=== PATIENT | male | born 1960 | race Caucasian/White ===

== ENCOUNTER 2018-06-10 18:23 | Inpatient (IN) ==
[2018-06-10 19:01] LABS: Red Cell Distribution Width 16.8 % (11.5-14.5)
[2018-06-10 19:03] LABS: Basophils % 1.1 %; Eosinophils # 0.1 K/mcL (0.0-0.6); Eosinophils % 2.2 %; Hematocrit 35.7 % (37.5-50.1); Hemoglobin 12.8 g/dL (12.9-16.9); Immature Granulocytes % 0.8 % (0-4); Immature Platelets 2.2 % (1.1-6.1); Lymphocytes % 26.3 %; Mean Corpuscular HGB Conc 35.9 g/dL (31.6-35.5); Mean Corpuscular Volume 105.9 fL (83.0-100.0); Mean Platelet Volume 10.6 fL (9.4-12.4); Monocytes # 0.5 K/mcL (0.0-1.3); Monocytes % 13.9 %; Red Blood Count 3.37 M/mcL (4.19-5.50); Segmented Neutrophils % 55.7 %
[2018-06-10 19:06] LABS: INR 1.7; Prothrombin Time 19.6 Seconds (9.4-12.1)
--- NOTE | 2018-06-10 19:09 | Emergency Department Note ---
Disposition Clinical Impression: Pancytopenia, Elevated INR Ascites Qualifiers: Ascites type: due to alcoholic cirrhosis Qualified Code(s): K70.31 - Alcoholic cirrhosis of liver with ascites Disposition: Admitted As Inpatient Condition: Good Referrals: Mani Martinez DO [Primary Care Provider] - Forms: ED Satisfaction Letter, Work/School Release Abdominal Pain HPI - General Chief Complaint: ED Abdominal Pain Stated Complaint: "stomach swollen wants stomach drained" Time Seen by Provider: 06/10/18 18:36 Source: patient, family Mode of arrival: private vehicle Limitations: no limitations Nursing Notes Reviewed: Yes Vital Signs Reviewed: Yes - History of Present Illness HPI Narrative: 57-year-old male history of alcoholic cirrhosis presents to the ER due to abdominal distention. Patient states that he drinks usually 6-8 beers a day. Reports he had a paracentesis back in January. Since then his continued to have swelling in his abdomen. [facility]. He states he has intermittent diarrhea but he also takes lactulose. No fevers. No vomiting. Has felt short of breath because of how swollen his abdomen is. No history of hepatitis. No other complaints. Pt Subjective Complaint: abdominal pain Onset (ago): month(s) Consistency: constant Pain Severity: mild Pain Scale: 2 Migration to: no migration Improves with: nothing Worsens with: nothing Context: history of similar episodes Associated symptoms: Reports: diarrhea. Denies: nausea, vomiting, fever, dysuria Treatments prior to arrival: none - Related Data Allergies Allergy/AdvReac Type Severity Reaction Status Date / Time No Known Allergies Allergy Verified 06/10/18 18:30 All systems ED: reviewed and negative except as stated. Constitutional: Denies: fever Gastrointestinal: Reports: abdominal pain, diarrhea. Denies: nausea, vomiting Genitourinary: Denies: dysuria, hematuria Abdominal Pain PMH - Past Medical History Medical history: Reports: liver disease Male Surgical History: Reports: orthopedic, other Psychiatric history: Reports: anxiety - Social History Smoking status: Former smoker Alcohol use: Reports: heavy Drug use: Reports: none Physical Exam - General Limitations: no limitations General appearance: alert, in no apparent distress - Head Head exam: atraumatic, normocephalic - Eye Eye exam: Present: normal appearance - ENT ENT exam: normal exam - Neck Neck exam: Present: normal inspection - Chest Chest inspection: Present: normal inspection, symmetric chest wall rise - Respiratory Respiratory exam: Present: normal lung sounds bilaterally - Cardiovascular Cardiovascular exam: Present: regular rate, normal rhythm, normal heart sounds - Abdominal Exam Abdominal exam: Present: soft, distention (Diffuse distention with mild diffuse tenderness.). Absent: guarding, rigidity - Extremities Exam Extremities exam: Present: normal inspection, full ROM - Expanded Upper Extremity Exam Shoulder exam: Present: normal inspection, full ROM Arm exam: Present: normal inspection, full ROM Elbow exam: Present: normal inspection, full ROM Forearm/Wrist exam: Present: normal inspection, full ROM Hand exam: Present: normal inspection, full ROM - Expanded Lower Extremity Exam Hip/Pelvis exam: Present: normal inspection, full ROM Upper leg exam: Present: normal inspection, full ROM Knee exam: Present: normal inspection, full ROM Lower leg exam: Present: normal inspection, full ROM Ankle exam: Present: normal inspection, full ROM Foot/toe exam: Present: normal inspection, full ROM - Skin Skin exam: Present: warm, dry Course Course Narrative: Patient seen and examined. Vital signs reviewed. Plan for baseline labs, paracentesis here with follow-up with gastroenterology. - Reevaluation(s) Reevaluation #1: Discussed findings with the patient. We will withhold on paracentesis at this time given his elevated INR and low platelets. Admission to the hospitalist for further evaluation and consultation for paracentesis by interventional radiology. Vital Signs Temperature 98.7 F 06/10/18 18:27 Pulse Rate 97 06/10/18 18:27 Respiratory Rate 16 06/10/18 18:27 Blood Pressure 116/73 06/10/18 18:27 O2 Sat by Pulse Oximetry 89 06/10/18 18:27 Temperature 98.7 F 06/10/18 18:42 Pulse Rate 97 06/10/18 18:42 Respiratory Rate 16 06/10/18 18:42 Blood Pressure 116/73 06/10/18 18:42 O2 Sat by Pulse Oximetry 89 06/10/18 18:42 Oxygen Delivery Oxygen Delivery Room Air Abdominal Pain - MDM Narrative Medical decision making narrative: 57-year-old male with abdominal distention secondary to cirrhosis. Alcohol abuse. His bilirubin is unchanged from prior. He is noted to have thrombocytopenia and elevated INR. Including emergency department paracentesis. The patient is admitted to the hospital service for further evaluation. - Lab Data Lab results reviewed: Yes I reviewed the patient's lab results. Result diagrams: 06/10/18 18:51 06/10/18 18:51 Lab Results 06/10/18 06/10/18 06/10/18 Range/Units 18:51 18:51 18:51 WBC 3.6 L (4.3-11.1) K/mcL RBC 3.37 L (4.19-5.50) M/mcL Hgb 12.8 L (12.9-16.9) g/dL Hct 35.7 L (37.5-50.1) % MCV 105.9 H (83.0-100.0) fL MCH 38.0 H (28.0-33.3) pg MCHC 35.9 H (31.6-35.5) g/dL RDW 16.8 H (11.5-14.5) % Plt Count 71 L (140-400) K/mcL MPV 10.6 (9.4-12.4) fL Immature Gran % 0.8 (0-4) % Seg Neutrophils % 55.7 % Lymphocytes % 26.3 % Monocytes % 13.9 % Eosinophils % 2.2 % Basophils % 1.1 % Neutrophils # 2.0 (1.6-8.9) K/mcL Lymphocytes # 1.0 (0.6-4.6) K/mcL Monocytes # 0.5 (0.0-1.3) K/mcL Eosinophils # 0.1 (0.0-0.6) K/mcL Basophils # 0.0 (0.0-0.2) K/mcL Platelet Estimate Decreased L (Normal) Immature Plt Fraction 2.2 (1.1-6.1) % PT 19.6 H (9.4-12.1) Seconds INR 1.7 Sodium 135 L (136-145) mEq/L Potassium 3.4 L (3.5-5.1) mEq/L Chloride 103 (98-107) mEq/L Carbon Dioxide 24 (23-29) mEq/L BUN 4 L (6-20) mg/dL Creatinine 0.38 L (0.70-1.30) mg/dL Est GFR ( Amer) > 60 (> 60) Est GFR (Non-Af Amer) > 60 (> 60) BUN/Creatinine Ratio 11 (6-26) Glucose 99 (70-105) mg/dL Calculated Osmolality 277 L (280-300) Calcium 8.3 L (8.6-10.3) mg/dL Total Bilirubin 4.2 H (0.3-1.0) mg/dL Direct Bilirubin 1.5 H (0.0-0.2) mg/dL Indirect Bilirubin 2.7 H (0.0-1.2) mg/dL AST 76 H (13-39) Units/L ALT 18 (7-52) Units/L Alkaline Phosphatase 232 H (34-104) Units/L Ammonia (16-53) mcmol/L Serum Total Protein 6.1 L (6.4-8.9) g/dL Albumin 2.6 L (3.5-5.7) g/dL Globulin 3.5 (2.4-3.5) g/dL Albumin/Globulin Ratio 0.7 L (1.1-2.2) Lipase 16 (11-82) Units/L 06/10/18 Range/Units 18:51 WBC (4.3-11.1) K/mcL RBC (4.19-5.50) M/mcL Hgb (12.9-16.9) g/dL Hct (37.5-50.1) % MCV (83.0-100.0) fL MCH (28.0-33.3) pg MCHC (31.6-35.5) g/dL RDW (11.5-14.5) % Plt Count (140-400) K/mcL MPV (9.4-12.4) fL Immature Gran % (0-4) % Seg Neutrophils % % Lymphocytes % % Monocytes % % Eosinophils % % Basophils % % Neutrophils # (1.6-8.9) K/mcL Lymphocytes # (0.6-4.6) K/mcL Monocytes # (0.0-1.3) K/mcL Eosinophils # (0.0-0.6) K/mcL Basophils # (0.0-0.2) K/mcL Platelet Estimate (Normal) Immature Plt Fraction (1.1-6.1) % PT (9.4-12.1) Seconds INR Sodium (136-145) mEq/L Potassium (3.5-5.1) mEq/L Chloride (98-107) mEq/L Carbon Dioxide (23-29) mEq/L BUN (6-20) mg/dL Creatinine (0.70-1.30) mg/dL Est GFR ( Amer) (> 60) Est GFR (Non-Af Amer) (> 60) BUN/Creatinine Ratio (6-26) Glucose (70-105) mg/dL Calculated Osmolality (280-300) Calcium (8.6-10.3) mg/dL Total Bilirubin (0.3-1.0) mg/dL Direct Bilirubin (0.0-0.2) mg/dL Indirect Bilirubin (0.0-1.2) mg/dL AST (13-39) Units/L ALT (7-52) Units/L Alkaline Phosphatase (34-104) Units/L Ammonia 51 (16-53) mcmol/L Serum Total Protein (6.4-8.9) g/dL Albumin (3.5-5.7) g/dL Globulin (2.4-3.5) g/dL Albumin/Globulin Ratio (1.1-2.2) Lipase (11-82) Units/L - EKG Data EKG attestation: Yes I reviewed and interpreted this EKG. EKG results narrative: EKG demonstrates sinus tachycardia with a rate of 105. Normal axis. Normal intervals. Normal R-wave progression. No gross ST elevations or depressions. No acute ischemic findings. S.B.A.R. - S.B.A.R. Situation: Demographics, MOA Background: Presenting Complaint, Relevant PMH, Meds, & Allergies Assessment: Course and respsone to treatment, Exam Concerns, Patient/Family Expectation, Pertinant Lab Results Recommendation: Barrier(s) to disposition, Recommendation based on pending studies, treatments, or consults S.B.A.R. Report Given to: Dr. Lopez
[2018-06-10 19:19] LABS: Platelet Count 71 K/mcL (140-400); Platelet Estimate Decreased (Normal)
[2018-06-10 19:21] LABS: Alanine Aminotransferase 18 Units/L (7-52); Albumin 2.6 g/dL (3.5-5.7); Albumin/Globulin Ratio 0.7 (1.1-2.2); Alkaline Phosphatase 232 Units/L (34-104); Aspartate Amino Transferase 76 Units/L (13-39); BUN/Creatinine Ratio 11 (6-26); Bilirubin,Direct 1.5 mg/dL (0.0-0.2); Bilirubin,Indirect 2.7 mg/dL (0.0-1.2); Bilirubin,Total 4.2 mg/dL (0.3-1.0); Blood Urea Nitrogen 4 mg/dL (6-20); Calcium 8.3 mg/dL (8.6-10.3); Carbon Dioxide 24 mEq/L (23-29); Chloride 103 mEq/L (98-107); Globulin 3.5 g/dL (2.4-3.5); Glucose 99 mg/dL (70-105); Lipase 16 Units/L (11-82); Osmolality,Calculated 277 (280-300); Potassium 3.4 mEq/L (3.5-5.1); Sodium 135 mEq/L (136-145); Total Protein 6.1 g/dL (6.4-8.9); eGFR For Non-African Americans > 60 (> 60)
--- NOTE | 2018-06-10 20:29 | Emergency Department Note ---
Disposition Clinical Impression: Pancytopenia, Elevated INR Ascites Qualifiers: Ascites type: due to alcoholic cirrhosis Qualified Code(s): K70.31 - Alcoholic cirrhosis of liver with ascites Disposition: Admitted As Inpatient Condition: Good General Adult HPI - General Chief complaint: ED Abdominal Pain Stated complaint: "stomach swollen wants stomach drained" Time Seen by Provider: 06/10/18 18:36 Source: patient, family Mode of arrival: private vehicle Limitations: no limitations Nursing Notes Reviewed: Yes Vital Signs Reviewed: Yes - History of Present Illness Pain Scale: 2 - Related Data Allergies Allergy/AdvReac Type Severity Reaction Status Date / Time No Known Allergies Allergy Verified 06/10/18 18:30 Constitutional: Denies: fever Gastrointestinal: Reports: abdominal pain, diarrhea. Denies: nausea, vomiting Genitourinary: Denies: dysuria, hematuria Past Medical History - Past Medical History Medical history: Reports: liver disease Psychiatric history: Reports: anxiety - Social History Smoking Status: Former smoker Smokeless Tobacco Status: No Alcohol use: Reports: heavy Drug use: Reports: none Physical Exam - General Limitations: no limitations General appearance: alert, in no apparent distress Course Vital Signs Temperature 98.7 F 06/10/18 18:27 Pulse Rate 97 06/10/18 18:27 Respiratory Rate 16 06/10/18 18:27 Blood Pressure 116/73 06/10/18 18:27 O2 Sat by Pulse Oximetry 89 06/10/18 18:27 Temperature 98.7 F 06/10/18 18:42 Pulse Rate 97 06/10/18 18:42 Respiratory Rate 16 06/10/18 21:44 Blood Pressure 107/68 06/10/18 21:44 O2 Sat by Pulse Oximetry 89 06/10/18 18:42 Oxygen Delivery Oxygen Delivery Room Air Medical Decision Making - Medical Records Medical records reviewed: Yes I reviewed the patient's medical records. - Lab Data Lab results reviewed: Yes I reviewed the patient's lab results. Result diagrams: 06/10/18 18:51 06/10/18 18:51 Lab Results 06/10/18 06/10/18 06/10/18 Range/Units 18:51 18:51 18:51 WBC 3.6 L (4.3-11.1) K/mcL RBC 3.37 L (4.19-5.50) M/mcL Hgb 12.8 L (12.9-16.9) g/dL Hct 35.7 L (37.5-50.1) % MCV 105.9 H (83.0-100.0) fL MCH 38.0 H (28.0-33.3) pg MCHC 35.9 H (31.6-35.5) g/dL RDW 16.8 H (11.5-14.5) % Plt Count 71 L (140-400) K/mcL MPV 10.6 (9.4-12.4) fL Immature Gran % 0.8 (0-4) % Seg Neutrophils % 55.7 % Lymphocytes % 26.3 % Monocytes % 13.9 % Eosinophils % 2.2 % Basophils % 1.1 % Neutrophils # 2.0 (1.6-8.9) K/mcL Lymphocytes # 1.0 (0.6-4.6) K/mcL Monocytes # 0.5 (0.0-1.3) K/mcL Eosinophils # 0.1 (0.0-0.6) K/mcL Basophils # 0.0 (0.0-0.2) K/mcL Platelet Estimate Decreased L (Normal) Immature Plt Fraction 2.2 (1.1-6.1) % PT 19.6 H (9.4-12.1) Seconds INR 1.7 Sodium 135 L (136-145) mEq/L Potassium 3.4 L (3.5-5.1) mEq/L Chloride 103 (98-107) mEq/L Carbon Dioxide 24 (23-29) mEq/L BUN 4 L (6-20) mg/dL Creatinine 0.38 L (0.70-1.30) mg/dL Est GFR ( Amer) > 60 (> 60) Est GFR (Non-Af Amer) > 60 (> 60) BUN/Creatinine Ratio 11 (6-26) Glucose 99 (70-105) mg/dL Calculated Osmolality 277 L (280-300) Calcium 8.3 L (8.6-10.3) mg/dL Total Bilirubin 4.2 H (0.3-1.0) mg/dL Direct Bilirubin 1.5 H (0.0-0.2) mg/dL Indirect Bilirubin 2.7 H (0.0-1.2) mg/dL AST 76 H (13-39) Units/L ALT 18 (7-52) Units/L Alkaline Phosphatase 232 H (34-104) Units/L Ammonia (16-53) mcmol/L Serum Total Protein 6.1 L (6.4-8.9) g/dL Albumin 2.6 L (3.5-5.7) g/dL Globulin 3.5 (2.4-3.5) g/dL Albumin/Globulin Ratio 0.7 L (1.1-2.2) Lipase 16 (11-82) Units/L 06/10/18 Range/Units 18:51 WBC (4.3-11.1) K/mcL RBC (4.19-5.50) M/mcL Hgb (12.9-16.9) g/dL Hct (37.5-50.1) % MCV (83.0-100.0) fL MCH (28.0-33.3) pg MCHC (31.6-35.5) g/dL RDW (11.5-14.5) % Plt Count (140-400) K/mcL MPV (9.4-12.4) fL Immature Gran % (0-4) % Seg Neutrophils % % Lymphocytes % % Monocytes % % Eosinophils % % Basophils % % Neutrophils # (1.6-8.9) K/mcL Lymphocytes # (0.6-4.6) K/mcL Monocytes # (0.0-1.3) K/mcL Eosinophils # (0.0-0.6) K/mcL Basophils # (0.0-0.2) K/mcL Platelet Estimate (Normal) Immature Plt Fraction (1.1-6.1) % PT (9.4-12.1) Seconds INR Sodium (136-145) mEq/L Potassium (3.5-5.1) mEq/L Chloride (98-107) mEq/L Carbon Dioxide (23-29) mEq/L BUN (6-20) mg/dL Creatinine (0.70-1.30) mg/dL Est GFR ( Amer) (> 60) Est GFR (Non-Af Amer) (> 60) BUN/Creatinine Ratio (6-26) Glucose (70-105) mg/dL Calculated Osmolality (280-300) Calcium (8.6-10.3) mg/dL Total Bilirubin (0.3-1.0) mg/dL Direct Bilirubin (0.0-0.2) mg/dL Indirect Bilirubin (0.0-1.2) mg/dL AST (13-39) Units/L ALT (7-52) Units/L Alkaline Phosphatase (34-104) Units/L Ammonia 51 (16-53) mcmol/L Serum Total Protein (6.4-8.9) g/dL Albumin (3.5-5.7) g/dL Globulin (2.4-3.5) g/dL Albumin/Globulin Ratio (1.1-2.2) Lipase (11-82) Units/L Attestation Statement - Attestation Attestation: I, Saulo Epperson MD, personally evaluated this patient and discussed their management with the resident physician. I reviewed the resident's note and agree with the documented findings, medical decision making, and plan of care. 57-year-old male with history of alcoholic cirrhosis presents to the emergency department complaining of abdominal distention from his ascites. He complains of difficulty breathing due to the abdominal distention and feels he needs to have fluid drained off his abdomen. He has had a paracentesis once in the past about 4-5 months ago. He is followed by his primary care doctor and has not seen GI. He does still drink beer daily. No fever. On examination patient is a well-developed well-nourished male in no acute distress. He is alert and oriented 3. There is no cyanosis or diaphoresis. Breath sounds are clear and equal bilaterally. Heart regular rate and rhythm. Abdomen is soft with present bowel sounds. Distended secondary to ascites. Mild diffuse tenderness with no guarding or rebound tenderness. Labs reviewed. The hospitalist, Dr. Lopez, was consulted and accepted admission of the patient.
[2018-06-10] MEDS ORDERED: Furosemide 40 MG/4 ML VIAL IVP ONE (21:08)
[2018-06-10] MEDS ORDERED: traMADol 50 MG TABLET PO ONE (21:11)
[2018-06-10] MEDS ORDERED: traMADol 50 MG TABLET PO PRN (21:14)
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
[2018-06-10] MEDS ORDERED: *HR* LORazepam 2 MG/ML VIAL IVP PRN (21:31)
[2018-06-10] MEDS ORDERED: *HR* Heparin 5,000 UNIT/ML VIAL SQ SCH (22:00)
[2018-06-10] MEDS: Folic Acid 1 MG TABLET PO SCH (23:15)
[2018-06-10] MEDS: Thiamine (B-1) 100 MG TABLET PO SCH (23:15)
[2018-06-10] MEDS: Vitamin B Complex/Vit C/Vit E 1 EACH TABLET PO SCH (23:15)
[2018-06-11 04:44] LABS: Immature Granulocytes % 0.6 % (0-4)
[2018-06-11 04:45] LABS: INR 1.9; Prothrombin Time 20.9 Seconds (9.4-12.1)
[2018-06-11 04:47] LABS: Basophils % 0.9 %; Eosinophils # 0.1 K/mcL (0.0-0.6); Eosinophils % 2.4 %; Hematocrit 34.5 % (37.5-50.1); Immature Platelets 7.3 % (1.1-6.1); Lymphocytes # 1.1 K/mcL (0.6-4.6); Lymphocytes % 31.8 %; Mean Corpuscular HGB Conc 34.8 g/dL (31.6-35.5); Mean Corpuscular Hemoglobin 35.9 pg (28.0-33.3); Mean Corpuscular Volume 103.3 fL (83.0-100.0); Monocytes # 0.5 K/mcL (0.0-1.3); Monocytes % 15.8 %; Red Blood Count 3.34 M/mcL (4.19-5.50); Red Cell Distribution Width 16.8 % (11.5-14.5); Segmented Neutrophils % 48.5 %
[2018-06-11 04:48] LABS: Activated Partial Thrombo Time 39.2 Seconds (26.0-36.0)
[2018-06-11 04:51] LABS: Neutrophils # 1.7 K/mcL (1.6-8.9); Platelet Count 61 K/mcL (140-400)
[2018-06-11 04:59] LABS: Alanine Aminotransferase 17 Units/L (7-52); Albumin 2.6 g/dL (3.5-5.7); Albumin/Globulin Ratio 0.8 (1.1-2.2); Alkaline Phosphatase 218 Units/L (34-104); Aspartate Amino Transferase 78 Units/L (13-39); BUN/Creatinine Ratio 10 (6-26); Bilirubin,Direct 1.9 mg/dL (0.0-0.2); Bilirubin,Indirect 3.6 mg/dL (0.0-1.2); Bilirubin,Total 5.5 mg/dL (0.3-1.0); Blood Urea Nitrogen 4 mg/dL (6-20); Calcium 8.5 mg/dL (8.6-10.3); Carbon Dioxide 26 mEq/L (23-29); Chloride 101 mEq/L (98-107); Globulin 3.4 g/dL (2.4-3.5); Glucose 93 mg/dL (70-105); Osmolality,Calculated 279 (280-300); Potassium 3.5 mEq/L (3.5-5.1); Sodium 136 mEq/L (136-145); eGFR For Non-African Americans > 60 (> 60)
[2018-06-11 05:21] LABS: Hepatitis B Surface Antigen Nonreactive (Nonreactive)
[2018-06-11] MEDS ORDERED: *HR* Heparin 5,000 UNIT/ML VIAL SQ SCH (06:00)
[2018-06-11] MEDS: Furosemide 40 MG TABLET PO SCH ×2 (08:57→16:17)
[2018-06-11] MEDS: Vitamin B Complex/Vit C/Vit E 1 EACH TABLET PO SCH (08:57)
[2018-06-11] MEDS: Thiamine (B-1) 100 MG TABLET PO SCH (08:57)
[2018-06-11] MEDS: Folic Acid 1 MG TABLET PO SCH (08:57)
--- NOTE | 2018-06-11 10:58 | Internal Med Progress Note ---
Hospitalist Progress Note - Encounter Date of Encounter: 06/11/18 Time of Encounter: 08:00 - Subjective Interval History: patient was een and examined at bedside denies any N/v/D, has no CP or SOB tolerated PO diet. currently not in pain. he is just concerned about his worsening abdominal distention. He reportedly was on diuretics in the past but states that he ran out a few weeks ago after which his abdominal distention has markedly worsened. he is also non-compliant to his lactulose because he does not like to go to the bathroom "every 5 min" last paracentesis was in january. - Exam Vitals: Temp Pulse Resp BP Pulse Ox 98.4 F 91 15 106/68 92 06/11/18 10:18 06/11/18 10:18 06/11/18 10:18 06/11/18 10:18 06/11/18 10:18 - Assessment and Plan (1) Decompensation of cirrhosis of liver Current Visit: Yes Status: Acute Assessment and Plan: massive ascites He does not have clinical signs and symptoms of SBP such as fever, chills, leukocytosis or exquisite abdominal tenderness with peritoneal reaction therefore no need for antimicrobials at this time. paracentesis today - if >5L of fluids removed - will give albumin 1 platelet and 1 FFP pre procedure ordered will follow peritoneal fluid analysis (2) Ascites Current Visit: Yes Status: Acute Assessment and Plan: furosemide 40 mg and spironolactone 100 mg daily rest of management as per above ran out of lasix last time he was tapped was in january 2018 (3) Pancytopenia Current Visit: Yes Status: Acute Assessment and Plan: macrocytic anemia adn thrombocytopenia most likely secondary to alcoholic liver cirrhosis will continue to monitor CBC type and cross (4) Alcohol abuse Current Visit: Yes Status: Acute Assessment and Plan: The patient has ongoing alcohol use in spite of his current liver condition. He was counseled extensively on this. Will place on CIWA protocol due to the fact he had a drink earlier today. Lorazepam prn withdrawal. Fall, seizure, aspiration precautions. Social work consultation. thiamine, folic acid MELD score 22 points 7-10% estimated 90 day mortality Maddrey 55.6 will start him on prednisolone 40 mg daily for 7 days and reevaluate if improvement then continue for 28 days needs close GI folow up - Gi consulted follow RUQ US and hepatitis panel (5) Alcoholic hepatitis Current Visit: Yes Status: Acute Assessment and Plan: secondary to above- management as per above (6) Alcoholic hepatitis with ascites Current Visit: Yes Status: Acute Assessment and Plan: secondary to above management as per above (7) Pancytopenia Current Visit: Yes Status: Acute Assessment and Plan: most likely secondary to cirrhosis s/p 1 platelet currently vitals are stable and no signs of bleeding or infection will continue to monitor patient (8) Coagulopathy Current Visit: Yes Status: Acute Assessment and Plan: secondary to cirrhosis INR is 1.9 will continue to monitor for bleeding received 1 FFP for paracentesis (9) DVT prophylaxis Current Visit: Yes Status: Acute Assessment and Plan: SCds as he is thrombocytopenic and has elevated INR DVT Prophylaxis: as per above - Time Spent with Patient Total time spent is greater than 50% in coordination of care (as documented) at patient's floor/unit and/or counseling patient: Internal Medicine: Result - Labs CBC & Chem 7: 06/11/18 04:21 06/11/18 04:21 Labs: Short CBC 06/11/18 Range/Units 04:21 WBC 3.4 L (4.3-11.1) K/mcL Hgb 12.0 L (12.9-16.9) g/dL Hct 34.5 L (37.5-50.1) % Plt Count 61 L (140-400) K/mcL Neutrophils # 1.7 (1.6-8.9) K/mcL BMP 06/11/18 04:21 Sodium 136 Potassium 3.5 Chloride 101 Carbon Dioxide 26 BUN 4 L Creatinine 0.40 L Glucose 93 Calcium 8.5 L Liver Function 06/11/18 Range/Units 04:21 Total Bilirubin 5.5 H (0.3-1.0) mg/dL Direct Bilirubin 1.9 H (0.0-0.2) mg/dL AST 78 H (13-39) Units/L ALT 17 (7-52) Units/L Alkaline Phosphatase 218 H (34-104) Units/L Albumin 2.6 L (3.5-5.7) g/dL - ABG Interpretation ABG results: PT/INR, D-dimer PT 20.9 Seconds (9.4-12.1) H 06/11/18 04:21 Consult Discharge Plan - Plan Referrals: Mani Martinez DO [Primary Care Provider] - (2) Ascites Qualifiers: Ascites type: due to alcoholic cirrhosis Qualified Code(s): K70.31 - Alcoholic cirrhosis of liver with ascites
[2018-06-11] MEDS ORDERED: 0.9 % Sodium Chloride 250 ML ONE ×2 (11:48→17:51)
--- NOTE | 2018-06-11 12:29 | Pulmonology Consult Note ---
<Ann-Marie Metcalf - Last Filed: 06/11/18 19:28> Date of Encounter: 06/11/18 Time of Encounter: 12:29 Assessment and Plan (1) Ascites Current Visit: Yes Status: Chronic He presented to the hospital due to abdominal distension and abdominal pain. At presentation he stated the distension was causing dyspnea. He had similar event in January and stated he required a paracentesis to relief his symptoms. He is unsure of why he has ongoing ascities and denies excessive alcohol use and is concerned for hepatitis C. He is urged to follow with a lamp developer outpatient to further evaluate. Ultrasound of the abdomen showed extensive fluid. Because of his low platelet and elevated INR he received FFP. -Abdomen was soft after therapeutic and diagnostic paracentesis -5 liters of fluid was collected -25 mg of albumin was given after paracentesis -Fluid analysis was sent for pathology and confirmed with nursing for transportation of the fluid to lab -Should follow up with gastroenterology outpatient to further evaluate the cause of cirrhosis Qualifiers: Ascites type: other type Qualified Code(s): R18.8 - Other ascites (2) Elevated INR Current Visit: Yes Status: Acute His INR today was 1.9 and at presentation was 1.7 likely due to chronic liver disease as he is not on any home anticoagulants. His platelet count was also decreased. -He received FFP after the paracentesis -There was minimal to no blood loss during the procedure -Needs to follow up with outpatient gastroenterology to further evaluate the cause of the liver cirrhosis History of Present Illness Consult date: 06/11/18 Requesting physician: Priscilla Ellington Reason for consult: dyspnea (dyspnea due to ascites, requiring paracentesis) Chief complaint: abdominal distension History of present illness: Mr. Degroot is a 57 year old male who presented to the [facility] due to abdominal distension, dyspnea associated to the abdominal distension and abdominal pain. He has history of cirrhosis and unknown if it is alcohol related or viral. He stated in January he had a similar event of abdominal distension and required a paracentesis which resolved his symptoms. He does not follow with a lamp developer or a process assistant. He was urged to follow with a lamp developer. This morning his INR was 1.9 and platelet was 61. We were consulted to perform a therapeutic and diagnostic paracentesis. He was awake, alert and oriented to person, place and time. He abdomen was hard and markedly distended and there was fluid wave appreciated. There was pitting edema of bilateral lower extremities. FFP was ordered as well as albumin to be given at the start of the procedure. Past Med Surg Social Fam HX - Past Medical History Medical history: cirrhosis, liver disease Psychiatric history: anxiety, depression - Past Surgical History Additional surgical history: Back x 2. Right Elbow. Right Hand. Left Leg- Femur. Left Knee Replacement, left tib-fib. Left Tib/Fib - Social History Smoking Status: Never smoker Smokeless Tobacco Status: No Alcohol use: heavy Drug use: none Medications and Allergies Citalopram Hydrobromide [Citalopram HBr] 40 mg PO DAILY 06/11/18 [History] 3 Allergy/AdvReac Type Severity Reaction Status Date / Time No Known Allergies Allergy Verified 06/10/18 18:30 All Systems: The remainder of the systems were reviewed and are negative - Constitutional Constitutional: no chills, no fever(s) - EENT Nose, mouth and throat: other - Cardiovascular Cardiovascular: dyspnea, edema, leg edema, no chest pain - Respiratory Respiratory: dyspnea, no wheezing - Gastrointestinal Gastrointestinal: abdominal pain, no vomiting - Neurological Neurological: no confusion - Hematologic/Lymphatic Hematologic/Lymphatic: easy bruising Physical Examination Vital Signs: Vital Signs, Last 4 Hours Temp Pulse Resp BP Pulse Ox 06/11/18 10:18 98.4 F 91 15 106/68 92 06/11/18 09:01 91 General appearance: no acute distress, alert Eyes: nonicteric Neck: supple Auscultation: bilateral: diminished breath sounds (diminised lung sounds bilateral lower lung bases ) Cardiovascular: regular rate and rhythm Gastrointestinal: tender (distended and fluid wave appreciated) Extremities: edema (bilateral lower extremities) normal mental status mood appropriate, affect normal Results - Laboratory Findings CBC and BMP: 06/11/18 04:21 06/11/18 04:21 PT/INR, D-dimer PT 20.9 Seconds (9.4-12.1) H 06/11/18 04:21 Abnormal lab findings: Abnormal lab results WBC 3.4 K/mcL (4.3-11.1) L 06/11/18 04:21 RBC 3.34 M/mcL (4.19-5.50) L 06/11/18 04:21 Hgb 12.0 g/dL (12.9-16.9) L 06/11/18 04:21 Hct 34.5 % (37.5-50.1) L 06/11/18 04:21 MCV 103.3 fL (83.0-100.0) H 06/11/18 04:21 MCH 35.9 pg (28.0-33.3) H 06/11/18 04:21 RDW 16.8 % (11.5-14.5) H 06/11/18 04:21 Plt Count 61 K/mcL (140-400) L 06/11/18 04:21 Platelet Estimate Decreased (Normal) L 06/10/18 18:51 Immature Plt Fraction 7.3 % (1.1-6.1) H 06/11/18 04:21 PT 20.9 Seconds (9.4-12.1) H 06/11/18 04:21 APTT 39.2 Seconds (26.0-36.0) H 06/11/18 04:21 BUN 4 mg/dL (6-20) L 06/11/18 04:21 Creatinine 0.40 mg/dL (0.70-1.30) L 06/11/18 04:21 Calculated Osmolality 279 (280-300) L 06/11/18 04:21 Calcium 8.5 mg/dL (8.6-10.3) L 06/11/18 04:21 Magnesium 1.3 mg/dL (1.6-2.6) L 06/11/18 04:21 Total Bilirubin 5.5 mg/dL (0.3-1.0) H 06/11/18 04:21 Direct Bilirubin 1.9 mg/dL (0.0-0.2) H 06/11/18 04:21 Indirect Bilirubin 3.6 mg/dL (0.0-1.2) H 06/11/18 04:21 AST 78 Units/L (13-39) H 06/11/18 04:21 Alkaline Phosphatase 218 Units/L (34-104) H 06/11/18 04:21 Serum Total Protein 6.0 g/dL (6.4-8.9) L 06/11/18 04:21 Albumin 2.6 g/dL (3.5-5.7) L 06/11/18 04:21 Albumin/Globulin Ratio 0.8 (1.1-2.2) L 06/11/18 04:21 - Clinical Findings Intake & Output: Intake & Output 06/10/18 06/11/18 06/11/18 23:59 07:59 15:59 Intake Total 0 / 0 0 / 0 240 / 240 Output Total 0 / 0 2800 / 2800 350 / 350 Balance 0 / 0 -2800 / -2800 -110 / -110 Weight 90.1 kg Consult Discharge Plan - Plan Referrals: Mani Martinez DO [Primary Care Provider] - Lenard Bruce MD [Partnered Physician] - <[email or web address] M - Last Filed: 06/11/18 22:24> Date of Encounter: 06/11/18 All Systems: The remainder of the systems were reviewed and are negative Physical Examination Vital Signs: Vital Signs, Last 4 Hours Temp Pulse Resp BP Pulse Ox 06/11/18 19:51 98.5 F 92 14 103/67 06/11/18 18:16 98.6 F 94 14 91/45 93 Results - Laboratory Findings CBC and BMP: 06/11/18 04:21 06/11/18 04:21 PT/INR, D-dimer PT 20.9 Seconds (9.4-12.1) H 06/11/18 04:21 Abnormal lab findings: Abnormal lab results WBC 3.4 K/mcL (4.3-11.1) L 06/11/18 04:21 RBC 3.34 M/mcL (4.19-5.50) L 06/11/18 04:21 Hgb 12.0 g/dL (12.9-16.9) L 06/11/18 04:21 Hct 34.5 % (37.5-50.1) L 06/11/18 04:21 MCV 103.3 fL (83.0-100.0) H 06/11/18 04:21 MCH 35.9 pg (28.0-33.3) H 06/11/18 04:21 RDW 16.8 % (11.5-14.5) H 06/11/18 04:21 Plt Count 61 K/mcL (140-400) L 06/11/18 04:21 Platelet Estimate Decreased (Normal) L 06/10/18 18:51 Immature Plt Fraction 7.3 % (1.1-6.1) H 06/11/18 04:21 PT 20.9 Seconds (9.4-12.1) H 06/11/18 04:21 APTT 39.2 Seconds (26.0-36.0) H 06/11/18 04:21 BUN 4 mg/dL (6-20) L 06/11/18 04:21 Creatinine 0.40 mg/dL (0.70-1.30) L 06/11/18 04:21 Calculated Osmolality 279 (280-300) L 06/11/18 04:21 Calcium 8.5 mg/dL (8.6-10.3) L 06/11/18 04:21 Magnesium 1.3 mg/dL (1.6-2.6) L 06/11/18 04:21 Total Bilirubin 5.5 mg/dL (0.3-1.0) H 06/11/18 04:21 Direct Bilirubin 1.9 mg/dL (0.0-0.2) H 06/11/18 04:21 Indirect Bilirubin 3.6 mg/dL (0.0-1.2) H 06/11/18 04:21 AST 78 Units/L (13-39) H 06/11/18 04:21 Alkaline Phosphatase 218 Units/L (34-104) H 06/11/18 04:21 Serum Total Protein 6.0 g/dL (6.4-8.9) L 06/11/18 04:21 Albumin 2.6 g/dL (3.5-5.7) L 06/11/18 04:21 Albumin/Globulin Ratio 0.8 (1.1-2.2) L 06/11/18 04:21 - Clinical Findings Intake & Output: Intake & Output 06/11/18 06/11/18 06/11/18 07:59 15:59 23:59 Intake Total 0 / 0 601 / 601 1000 / 1000 Output Total 2800 / 2800 775 / 775 1300 / 1300 Balance -2800 / -2800 -174 / -174 -300 / -300 - Attending Attestation I examined this patient and my medical decision-making was reviewed with the Resident Physician. I agree with the documented findings, disposition and treatment plan as described except to the extent set forth below. I was consulted to see this patient with significant ascites and patient having abdominal discomfort. Patient was seen because IR/GI services not immediately available. Patient with liver cirrhosis and he was seen and examined with the resident. Plan of care was discussed with the residents and all labs and images reviewed. Patient had paracentesis before and it has helped him. Patient has tense abdomen during examination and explained to him all risks, benefits and alternatives of procedure and he agreed to have it done. This was done and patient felt immediately better after the procedure. This is discussed with primary team and thanks for the consultation.
--- NOTE | 2018-06-11 12:32 | Procedure Note ---
<Ann-Marie Metcalf - Last Filed: 06/11/18 18:47> Date of procedure: 06/11/18 Pre-op diagnosis: cirrhosis Post-op diagnosis: same (decreased ascites, softer abdomen) Procedure: Consent for the paracentesis was obtained. Ultrasound was used to note the area of fluid and the area was marked. The patient was informed of the risk of bleeding, infection and bowel injury during the procedure. Sterile technique was performed. The patient was draped with a sterile shield. The area was sterilized with betadine. 10 ml of 1% lidocaine was around the subcutaneous tissue and then was injected into the abdominal wall. A scalpel was used to make a small incision, thereafter fluid was pulled back. Catheter guided needle was advanced into the marked area and then the catheter was advanced after fluid was noted. The wire was attached to a flask, total of 5 liters of fluid was obtained. Then pressure was applied and a pressure bandage was placed thereafter. There was minimal blood loss. The abdomen was soft after the procedure and the patient noted relief. Sharps were disposed into the sharp container and the fluid sample was sent for analysis. Spoke with nursing to confirm the fluid transportation to lab. Anesthesia: local (lidocaine 10 ml ) Surgeon: Ann-Marie Metcalf (5 liters of ) Was there an pet care assistant present: Yes Instructional Developer: Jericho Arthur Estimated blood loss (cc): 0 Specimen: ascitic fluid Pathology: other (sent for path.) Condition: stable Disposition: no change <Love Mobley - Last Filed: 06/11/18 22:07> Procedure: I examined this patient and my medical decision-making was reviewed with the Resident Physician. I agree with the documented findings, disposition and treatment plan as described except to the extent set forth below. I was personally present during entire procedure and no immediate complications.
[2018-06-11] MEDS: Albumin 25% 25gram/100mL 25 GM/100 ML IV.SOLN IVC SCH ×2 (14:19→16:18)
[2018-06-11 15:08] LABS: RBC,Peritoneal Fluid < 0.002 M/mcL
[2018-06-11 15:23] LABS: Amylase,Peritoneal Fluid 13 Units/L (No Ref Range); Glucose,Peritoneal Fluid 107 mg/dL (No Ref Range); LDH,Peritoneal Fluid 55 Units/L (No Ref Range); Total Protein,Peritoneal Fluid < 3.0 g/dL (No Ref Range)
[2018-06-11 15:39] LABS: Appearance of Peritoneal Fl CLEAR (Clear)
[2018-06-11] MEDS: PrednisoLONE Oral Soln 15 MG/5 ML UDC PO SCH (16:18)
--- NOTE | 2018-06-11 16:25 | Discharge Summary ---
- NOTES TO OUTPATIENT PROVIDER Notes to Outpatient Provider: for RUQ US Q6 months. needs to have EGD and colonoscopy as OP. needs to have GI follow up Orders not resulted at time of discharge: Pending orders 06/11/18 04:21 FFP [PLASMA] [BBK] Stat Hepatitis Prof.(Routine A,B,C) AM 0400 Platelets [BBK] Stat Type and Screen [BBK] AM 0400 06/12/18 04:00 BMP [Basic Metabolic Panel] AM 0400 Complete Blood Count [HEME] AM 0400 PT/INR [Prothrombin Time INR] [COAG] AM 0400 Date of Encounter: 06/12/18 Time of Encounter: 12:50 - Discharge Diagnosis (1) Decompensation of cirrhosis of liver Priority: Primary Status: Acute (2) Ascites Priority: Secondary Status: Acute Qualifiers: Ascites type: due to alcoholic cirrhosis Qualified Code(s): K70.31 - Alcoholic cirrhosis of liver with ascites (3) Pancytopenia Priority: Secondary Status: Acute (4) Alcohol abuse Priority: Secondary Status: Acute (5) Alcoholic hepatitis Priority: Secondary Status: Acute Qualifiers: Ascites presence: with ascites Qualified Code(s): K70.11 - Alcoholic hepatitis with ascites (6) Alcoholic hepatitis with ascites Priority: Secondary Status: Acute (7) Pancytopenia Priority: Secondary Status: Acute (8) Coagulopathy Priority: Secondary Status: Acute (9) DVT prophylaxis Priority: Secondary Status: Acute Hospital course: Mr. Degroot is a 57 year old male with anxiety disorder, a reported 5 year history of alcohol abuse and developed liver cirrhosis over the past year, last undergoing paracentesis in January 2018, who presents now with increasing abdominal distention over the past few months accompanied by shortness of breath and dyspnea on exertion. He reports abdominal discomfort because of the ongoing distention for which he says he has been unable to get a tap done in the recent months. He denies fever, severe abdominal pain and generalized malaise but states he is uncomfortable and now has trouble lying down because of the abdominal distention with episodes of shortness of breath because of the pressure on his chest. He reportedly was on diuretics in the past but states that he ran out a few weeks ago after which his abdominal distention has markedly worsened. On arrival to the emergency room he was in no acute distress, clinically and hemodynamically stable. There was the intent for him to undergo paracentesis and be discharged however due to the findings of thrombocytopenia and a mildly elevated INR and was decided that he be admitted to undergo the procedure in a monitored setting. He was started on CIWA protocol, Lasix, spironolactone was started. paracentesis was performed, 5 L of fluid was removed and He received albumin with significant improvement of his abdominal distention. Due to coagulopathy and pancytopenia he received 1 FFP and 1 platelet. There was no hematemesis hematochezia or melena throughout the hospital stay. Abdominal ultrasound was done results below. his MELD score 22 points 7-10% estimated 90 day mortality and Maddrey 55.6 he was started on prednisolone 40 mg daily for 7 days and to be reevaluated, if improvement then continue for total 28 days. GI was consulted and medications were reviewed for discharge. labs were ordered by GI and he was told to follow with them as OP for the results. The patient has ongoing alcohol use in spite of his current liver condition. He was counseled extensively on this. IMPRESSION: 1. Cirrhotic liver with moderate volume of ascites. 2. Incidental note related renal cysts is noted. 3. Nonshadowing debris within gallbladder suspicious for biliary sludge. Discharge discussed with: patient - Time Spent with Patient Total time spent providing and/or coordinating discharge services: Less than 30 minutes - Discharge Medications Prescriptions: Folic Acid 1 mg PO DAILY #30 tablet Furosemide [Lasix] 20 mg PO BIDDIURETIC 30 Days #60 tablet Lactulose 20 gm PO BID 30 Days #60 solution prednisoLONE [Prelone] 40 mg PO DAILY 27 Days #27 udc Spironolactone [Aldactone] 50 mg PO DAILY #30 tablet Thiamine (B-1) [Vitamin B-1] 100 mg PO DAILY #30 tablet Vitamin B Complex/Vit C/Vit E [Stresstab] 1 each PO DAILY #30 tablet Home Medications: Citalopram Hydrobromide [Citalopram HBr] 40 mg PO DAILY 06/11/18 [History] Folic Acid 1 mg PO DAILY #30 tablet 06/12/18 [Rx] Furosemide [Lasix] 20 mg PO BIDDIURETIC 30 Days #60 tablet 06/12/18 [Rx] Lactulose 20 gm PO BID 30 Days #60 solution 06/12/18 [Rx] Spironolactone [Aldactone] 50 mg PO DAILY #30 tablet 06/12/18 [Rx] Thiamine (B-1) [Vitamin B-1] 100 mg PO DAILY #30 tablet 06/12/18 [Rx] Vitamin B Complex/Vit C/Vit E [Stresstab] 1 each PO DAILY #30 tablet 06/12/18 [ Rx] prednisoLONE [Prelone] 40 mg PO DAILY 27 Days #27 udc 06/12/18 [Rx] Allergies/Adverse Reactions: 3 Allergy/AdvReac Type Severity Reaction Status Date / Time No Known Allergies Allergy Verified 06/10/18 18:30 Date of admission: 06/10/18 21:39 Primary care physician: Mani Martinez DO Consults: 06/10/18 23:57 Consult to Interventional Radiology [CONS] Routine Consulting Provider: Radiology Interventional [facility] Reason for Consult: patient with alcoholic cirrhosis and coagulopathic with large volume ascites need monitored paracentesis. Call Completed: No 06/11/18 10:57 Consult to Pulmonology [CONS] Stat Consulting Provider: [facility] [place] Reason for Consult: paracentesis Call Completed: Yes 06/11/18 15:32 Consult to Gastroenterology [CONS] Routine Consulting Provider: Gastroenterology Angelica Reason for Consult: ascitis, alcoholic hepatitis Maddrey 55, meld 26 Call Completed: No - Constitutional Vitals: Temp Pulse Resp BP Pulse Ox 98.3 F 99 14 98/63 95 06/11/18 14:21 06/11/18 14:21 06/11/18 14:21 06/11/18 14:21 06/11/18 14:21 Exam: General: Patient is alert, oriented, no acute distress, Head: atraumatic, normocephalic, Eye: normal appearance, PERRL, no scleral icterus, no conjunctival injection ENT: mucous membranes moist, normal external ear exam Neck: normal inspection, trachea midline, full ROM, no carotid bruits Chest: normal inspection, symmetric chest rise Respiratory: Good respiratory effort. Bilateral breath sounds are clear without wheezing, crackles, or rhonchi. Cardiovascular: Regular rate and rhythm. s1 and s2 No clicks, rubs, gallops, or murmors. Abdomen: Bowel sounds present normoactive x-4 quadrants. distended, non-tender , no spider angiomas, fluid wave positive ( much more improved from admission date) musculoskeletal: Spontaneously moving all extremities. no edema, no calf tenderness Skin: warm, dry, intact. Neuro: Alert and oriented x4. Sensation light touch intact. Cranial nerves 2- 12 is intact. Not aphasic, gait is steady, rapid hand movements intact, finger- to-nose intact, Psych: Patient's affect is normal - Patient Status Disposition: Home, Self-Care Condition: Fair Overall status at discharge: patient is progressing back to baseline - Discharge Instructions Follow Up With: Mani Martinez DO [Primary Care Provider] - 06/20/18 1:00 pm Lenard Bruce MD [Partnered Physician] - (Web request sent per Office and office will contact patient with appointment. ) - Diet and Activity Activity: as per physical therapy Diet: low salt diet
[2018-06-12 01:38] LABS: Hepatitis A Antibody IgM Nonreactive (Nonreactive); Hepatitis B Core IgM Nonreactive (Nonreactive); Hepatitis C Virus Antibody Nonreactive (Nonreactive)
[2018-06-12 06:39] LABS: INR 2.1; Prothrombin Time 23.7 Seconds (9.4-12.1)
[2018-06-12 06:43] LABS: Basophils % 0.3 %
[2018-06-12 06:45] LABS: Hematocrit 33.1 % (37.5-50.1); Hemoglobin 11.6 g/dL (12.9-16.9); Immature Granulocytes % 0.5 % (0-4); Lymphocytes # 0.7 K/mcL (0.6-4.6); Lymphocytes % 19.4 %; Mean Corpuscular Hemoglobin 36.3 pg (28.0-33.3); Mean Corpuscular Volume 103.4 fL (83.0-100.0); Mean Platelet Volume 11.5 fL (9.4-12.4); Monocytes # 0.4 K/mcL (0.0-1.3); Monocytes % 9.6 %; Neutrophils # 2.6 K/mcL (1.6-8.9); Segmented Neutrophils % 70.2 %
[2018-06-12 06:54] LABS: Platelet Count 67 K/mcL (140-400)
[2018-06-12 07:08] LABS: BUN/Creatinine Ratio 17 (6-26); Blood Urea Nitrogen 7 mg/dL (6-20); Calcium 8.3 mg/dL (8.6-10.3); Carbon Dioxide 28 mEq/L (23-29); Chloride 99 mEq/L (98-107); Glucose 135 mg/dL (70-105); Osmolality,Calculated 280 (280-300); Potassium 3.4 mEq/L (3.5-5.1); Sodium 135 mEq/L (136-145); eGFR For Non-African Americans > 60 (> 60)
[2018-06-12] MEDS: Folic Acid 1 MG TABLET PO SCH (10:14)
[2018-06-12] MEDS: Thiamine (B-1) 100 MG TABLET PO SCH (10:14)
[2018-06-12] MEDS: Vitamin B Complex/Vit C/Vit E 1 EACH TABLET PO SCH (10:15)
[2018-06-12] MEDS: PrednisoLONE Oral Soln 15 MG/5 ML UDC PO SCH (10:15)
[2018-06-12 10:46] VITALS: BP 95/59
[2018-06-12] MEDS: Furosemide 40 MG TABLET PO SCH (11:22)
--- NOTE | 2018-06-12 13:05 | Gastroenterology Consult Note ---
<Jericho De Dios Beth - Last Filed: 06/12/18 13:01> Date of Encounter: 06/12/18 Time of Encounter: 11:30 - Assessment and plan (1) Cirrhosis Status: Acute Assessment and plan: On admission MELD-Na 21, Child-Lawson class C, DF 46.1. RUQ US showed cirrhotic liver with moderate volume of ascites. Paracentesis completed with 5L fluid removed. Contiue Aldactone and Lasix. Recommend 2-4 BM per day, can use Lactulose if needed. Recommend EGD for variceal surveillance, however patient refuses to have EGD completed while in hospital and prefers to completed as an outpatient. Complete liver workup. Hepatitis profile negative. Follow up with Dr. Root in 4 weeks. Lifestyle Changes: 1. Total abstinence from alcohol including social drinking. 2. No smoking. 3. Gradual loss of weight. 4. Drink at least 3 cups of coffee due to its antioxidant effects in the liver, it reduces risk of HCC and advance fibrosis. 5. If needed, use less than 2 g/day of Tylenol (in divided doses). 6. Vaccination for Hep A, B, Pneumococcus if not already received and yearly influenza vaccination by PCP. 7. Avoid NSAIDS as can cause kidney damage. 8. Avoid benzodiazepines and other sedatives such as anti-histamines, narcotics etc. as can cause encephalopathy or confusion. 9. Take a late carbohydrate meal supplement as it reduces glucose production from protein breakdown and thus improves nutrition. 10. In cirrhosis, statins are safe to use and also improve portal hypertension and decrease risk of HCC. 11. Screening: o Hepatocellular cancer screening: US of liver and AFP every 6 months Qualifiers: Hepatic cirrhosis type: alcoholic cirrhosis Ascites presence: with ascites Qualified Code(s): K70.31 - Alcoholic cirrhosis of liver with ascites (2) Alcohol abuse Status: Acute Assessment and plan: Total abstinence from alcohol including social drinking. (3) Ascites Status: Chronic Assessment and plan: Paracentesis completed with 5L fluid removed. Continue Aldactone and Lasix. Qualifiers: Ascites type: other type Qualified Code(s): R18.8 - Other ascites - Time Spent With Patient Total time spent is greater than 50% in coordination of care (as documented) at patient's floor/unit and/or counseling patient: GI History of Present Illness - Data of Consult Patient: new to practice Consult date: 06/12/18 Requesting Physician: Priscilla Ellington MD - Consult Narrative Reason for consult: Ascites History of present illness: Mr. Degroot is a 57 year old male with PMHx of anxiety disorder, reported 5 year history of alcohol abuse and developed liver cirrhosis over the past year, last undergoing paracentesis in January 2018, who presents now with increasing abdominal distention over the past few months accompanied by shortness of breath and dyspnea on exertion. He reports abdominal discomfort because of the ongoing distention for which he says he has been unable to get a tap done in the recent months. He reportedly was on diuretics in the past but states that he ran out a few weeks ago after which his abdominal distention has markedly worsened. He denies ever vomiting blood or passing blood through his lower GI tract. He reports drinking as many as 12 beers daily, but typically drinks 6-8 beers daily. Paracentesis completed 06/11 with 5 liters removed and 25mg Albumin given following procedure. Procedures: None NSAIDs: None Anticoagulation: None Past Med Surg Social Fam HX - Past Medical History Medical history: cirrhosis, liver disease Psychiatric history: anxiety, depression - Past Surgical History Additional surgical history: Back x 2. Right Elbow. Right Hand. Left Leg- Femur. Left Knee Replacement, left tib-fib. Left Tib/Fib - Social History Smoking Status: Never smoker Smokeless Tobacco Status: No Alcohol use: heavy Drug use: none - Gastrointestinal Gastrointestinal: Present: as per HPI - Constitutional Constitutional: as per HPI - EENT Eyes: as per HPI Ears: Present: as per HPI Nose, mouth and throat: Present: as per HPI - Cardiovascular Cardiovascular ROS: Present: as per HPI - Respiratory Respiratory IM: Present: as per HPI - Genitourinary Genitourinary: Absent: change in color, Urinary frequency - Neurological ROS Neurological GI: Present: as per HPI - Hematologic/Lymphatic Hematologic/Lymphatic pediatric: Present: as per HPI - Musculoskeletal Musculoskeletal ROS GI: Present: as per HPI - Integumentary Integumentary GI: Present: as per HPI - Psychiatric ROS Psychiatric GI: Present: as per HPI - Endocrine Endocrine IM: Present: as per HPI - Constitutional Vitals: Temp Pulse Resp BP Pulse Ox 97.9 F 92 14 95/59 92 06/12/18 10:44 06/12/18 10:44 06/12/18 10:44 06/12/18 10:44 06/12/18 10:44 General appearance: Present: cooperative, A&O X 3, no acute distress, answers questions appropriately - Head Head exam: Present: atraumatic, normocephalic - Eye Eye exam: Present: normal appearance, sclera anicteric - ENT ENT exam: Present: mucous membranes moist - Neck Neck exam general surgery: Present: normal inspection, trachea midline - Respiratory Respiratory exam: Present: CTAB. Absent: rales, rhonchi - Cardiovascular Cardiovascular exam: Present: RRR, +S1, +S2 - GI/Abdominal GI/Abdominal exam: Present: distended (mild), normal bowel sounds, soft, no peritoneal signs. Absent: firm, guarding Additional comments: no spider angiomas - Expanded GI/Abdominal Exam GI/Abdominal exam expanded: Present: ascites - Rectal Rectal exam: Present: deferred - Extremities Exam Extremities exam: Present: warm - Neurological Exam Neurological exam: Present: no focal deficits - Psychiatric Psychiatric exam: Present: normal affect, normal mood - Skin Skin exam: Present: dry, intact, normal color, warm Results - Labs CBC & Chem 7: 06/12/18 05:59 06/12/18 05:59 Labs: Last Result Calcium 8.3 mg/dL (8.6-10.3) L 06/12/18 05:59 Peritoneal Appearance CLEAR (Clear) 06/11/18 12:32 Peritoneal Volume 975.0 mL 06/11/18 12:32 Peritoneal RBC < 0.002 M/mcL (0.000-0.002) 06/11/18 12:32 Periton Tot Nuc Cells 146 TNC/mcL (0-300) 06/11/18 12:32 Periton Lymphocytes % 24.0 % 06/11/18 12:32 Periton Monocytes % 7.0 % 06/11/18 12:32 Periton Other Cells % 67.0 % 06/11/18 12:32 Peritoneal Tot Protein < 3.0 g/dL (No Ref Range) 06/11/18 12:32 Peritoneal Albumin < 1.5 g/dL (No Ref Range) 06/11/18 12:32 Peritoneal LDH 55 Units/L (No Ref Range) 06/11/18 12:32 Peritoneal Glucose 107 mg/dL (No Ref Range) 06/11/18 12:32 Peritoneal Amylase 13 Units/L (No Ref Range) 06/11/18 12:32 Entire Visit Hgb 11.6 g/dL (12.9-16.9) L 06/12/18 05:59 Hct 33.1 % (37.5-50.1) L 06/12/18 05:59 PT 23.7 Seconds (9.4-12.1) H 06/12/18 05:59 Total Bilirubin 5.5 mg/dL (0.3-1.0) H 06/11/18 04:21 AST 78 Units/L (13-39) H 06/11/18 04:21 ALT 17 Units/L (7-52) 06/11/18 04:21 Ammonia 51 mcmol/L (16-53) 06/10/18 18:51 Lipase 16 Units/L (11-82) 06/10/18 18:51 - ABG ABG results: PT/INR, D-dimer PT 23.7 Seconds (9.4-12.1) H 06/12/18 05:59 - Impressions Impressions Liver Ultrasound 06/12/18 09:00 IMPRESSION: 1. Cirrhotic liver with moderate volume of ascites. 2. Incidental note related renal cysts is noted. 3. Nonshadowing debris within gallbladder suspicious for biliary sludge. D/ / Zacarias Brown / Zacarias Brown Interpreting Provider: Zacarias Brown Consult Discharge Plan - Plan Instructions: Ascites (DC) Referrals: Mani Martinez DO [Primary Care Provider] - 06/20/18 1:00 pm Lenard Bruce MD [Partnered Physician] - (Web request sent per Office and office will contact patient with appointment. ) Prescriptions: Folic Acid 1 mg PO DAILY #30 tablet Furosemide [Lasix] 20 mg PO BIDDIURETIC 30 Days #60 tablet Lactulose 20 gm PO BID 30 Days #60 solution prednisoLONE [Prelone] 40 mg PO DAILY 27 Days #27 udc Spironolactone [Aldactone] 50 mg PO DAILY #30 tablet Thiamine (B-1) [Vitamin B-1] 100 mg PO DAILY #30 tablet Vitamin B Complex/Vit C/Vit E [Stresstab] 1 each PO DAILY #30 tablet <Mumtaz Root - Last Filed: 06/20/18 06:42> Date of Encounter: 06/12/18 - Time Spent With Patient Total time spent is greater than 50% in coordination of care (as documented) at patient's floor/unit and/or counseling patient: GI History of Present Illness - Data of Consult Requesting Physician: Priscilla Ellington MD - Consult Narrative History of present illness: Mr. Degroot is a 57 year old male - Constitutional Vitals: Temp Pulse Resp BP Pulse Ox 97.9 F 92 14 95/59 92 06/12/18 10:44 06/12/18 10:44 06/12/18 10:44 06/12/18 10:44 06/12/18 10:44 Results - Labs CBC & Chem 7: 06/12/18 05:59 08 05:59 Labs: Last Result Calcium 8.3 mg/dL (8.6-10.3) L 06/12/18 05:59 Ferritin 213 ng/mL (20-250) 06/12/18 13:30 Peritoneal Appearance CLEAR (Clear) 06/11/18 12:32 Peritoneal Volume 975.0 mL 06/11/18 12:32 Peritoneal RBC < 0.002 M/mcL (0.000-0.002) 06/11/18 12:32 Periton Tot Nuc Cells 146 TNC/mcL (0-300) 06/11/18 12:32 Periton Lymphocytes % 24.0 % 06/11/18 12:32 Periton Monocytes % 7.0 % 06/11/18 12:32 Periton Other Cells % 67.0 % 06/11/18 12:32 Peritoneal Tot Protein < 3.0 g/dL (No Ref Range) 06/11/18 12:32 Peritoneal Albumin < 1.5 g/dL (No Ref Range) 06/11/18 12:32 Peritoneal LDH 55 Units/L (No Ref Range) 06/11/18 12:32 Peritoneal Glucose 107 mg/dL (No Ref Range) 06/11/18 12:32 Peritoneal Amylase 13 Units/L (No Ref Range) 06/11/18 12:32 Entire Visit Hgb 11.6 g/dL (12.9-16.9) L 06/12/18 05:59 Hct 33.1 % (37.5-50.1) L 06/12/18 05:59 PT 23.7 Seconds (9.4-12.1) H 06/12/18 05:59 Ferritin 213 ng/mL (20-250) 06/12/18 13:30 Total Bilirubin 5.5 mg/dL (0.3-1.0) H 06/11/18 04:21 AST 78 Units/L (13-39) H 06/11/18 04:21 ALT 17 Units/L (7-52) 06/11/18 04:21 Ammonia 51 mcmol/L (16-53) 06/10/18 18:51 Dingv-5-Jthyxgdcyey 122 mg/dL (90-200) 06/12/18 13:30 Ceruloplasmin 16 mg/dL (17-54) L 06/12/18 13:30 Lipase 16 Units/L (11-82) 06/10/18 18:51 F-Actin IgG Antibody 16 Units (0-19) 06/12/18 13:30 - ABG ABG results: PT/INR, D-dimer PT 23.7 Seconds (9.4-12.1) H 06/12/18 05:59 - Attending Attestation I have personally performed a face to face evaluation on this patient. I have reviewed and agree with the care plan. History and Exam by me shows:
[2018-06-13 14:58] LABS: AFP Tumor Marker Non-Pregnant 3 ng/mL (0-9)
[2018-06-14 08:26] LABS: ANA IgG by ELISA NONE DETECTED (None Detected)
[2018-06-14 08:27] LABS: F-Actin (sm muscle) Ab IgG 16 Units (0-19); Myeloperoxidase Ab 0 AU/mL (0-19); Serine Protease-3 Antibody 9 AU/mL (0-19)
== END 2018-06-12 15:42 | disposition home or self-care (01) | DRG 433 ==
LOC: EMEROO 18:23 → 3ANU 18:23 → SUATTDRO 21:39 → 3ANU 21:58
PROVIDERS: ADMIT Internal Medicine; ATTEND Internal Medicine